=== PATIENT | female | born 1990 | race American Indian/Alaskan Native ===

== ENCOUNTER 2018-09-04 13:16 | Emergency (ER) | payer SELFPAY ==
[2018-09-04 13:16] VITALS: BMI 19.5
[2018-09-04 13:27] VITALS: RESP 18; O2SAT 99
--- NOTE | 2018-09-04 13:31 | ED PDOC ---
HPI: Abdomen Time Seen by Provider: 09/04/18 13:30 Chief Complaint (Nursing): Abdominal Pain Chief Complaint (Provider): abdominal pain History Per: Patient Additional Complaint(s): 27 y/o female presents with generalized abdominal pain for 1 week associated with diarrhea and nausea. LMP was 08/19/18 but patient states she is not sure if she is . No fever or chills. She rates current pain as 5/10. Patient did not take any home test. PMD: [place] Past Medical History Reviewed: Historical Data, Nursing Documentation, Vital Signs Vital Signs: Last Vital Signs Temp 97.7 F 09/04/18 13:25 Pulse 103 H 09/04/18 13:25 Resp 18 09/04/18 13:25 BP 102/63 09/04/18 13:25 Pulse Ox 99 09/04/18 13:25 - Medical History PMH: No Chronic Diseases - Family History Family History: States: No Known Family Hx - Living Arrangements Living Arrangements: With Family - Social History Current smoker - smoking cessation education provided: No - Home Medications Home Medications: Ambulatory Orders Medication Instructions Recorded Naproxen [Naprosyn] 375 mg PO BID PRN #14 tab 10/18/14 Ibuprofen [Motrin] 600 mg PO Q8 #20 tab 03/28/15 - Allergies Allergies/Adverse Reactions: Allergies Allergy/AdvReac Type Severity Reaction Status Date / Time No Known Allergies Allergy Verified 10/18/14 04:13 Review of Systems ROS Statement: Except As Marked, All Systems Reviewed And Found Negative Gastrointestinal: Positive for: Abdominal Pain Physical Exam - Reviewed Nursing Documentation Reviewed: Yes Vital Signs Reviewed: Yes - Physical Exam Appears: Positive for: Well, Non-toxic, No Acute Distress Skin: Positive for: Normal Color. Negative for: Rash Eye Exam: Positive for: Normal appearance Cardiovascular/Chest: Positive for: Regular Rate, Rhythm Respiratory: Positive for: Normal Breath Sounds. Negative for: Wheezing, Respiratory Distress Gastrointestinal/Abdominal: Positive for: Soft. Negative for: Tenderness, Distended, Guarding, Rebound Extremity: Positive for: Normal ROM Neurologic/Psych: Positive for: Alert, Oriented - Laboratory Results Result Diagrams: 09/04/18 15:43 09/04/18 15:43 Urine POC: Negative Urine dip results: Negative for: Leukocyte Esterase, Blood, Nitrate, Ketones, Glucose, Bilirubin, Protein - ECG O2 Sat by Pulse Oximetry: 99 Pulse Ox Interpretation: Normal Medical Decision Making Medical Decision Makin27 y/o with generalized abdominal pain Plan: Urine test Urine dip CBC CMP Lipase PO mylanta PO simethicone Patient is aware of all diagnostic testing results. All questions answered. Advised PMD follow up. Disposition - Clinical Impression Clinical Impression: Abdominal pain - Patient ED Disposition Is Patient to be Admitted: No Counseled Patient/Family Regarding: Studies Performed, Diagnosis, Need For Followup - Disposition Referrals: [facility] [Provider Group] Disposition: Routine/Home Disposition Time: 16:50 Condition: STABLE Additional Instructions: Take over the counter mylanta or gas-x for stomach upset. Take pepcid 20 mg dose daily for heartburn symptoms. This med is available over the counter. Follow up with primary care doctor in 2-3 days. Instructions: Stomach Ache and Stomach Upset Forms: [employer] [facility] ([place])
[2018-09-04] MEDS ORDERED: Simethicone 80 mg Chewtab PO STA (14:55)
[2018-09-04] MEDS ORDERED: Alum-Mag Hydrox-Simethicone Susp (30 mL) PO STA (14:56)
[2018-09-04] MEDS ORDERED: Alum-Mag Hydrox-Simethicone Susp (30 mL) ONE (15:20)
[2018-09-04 15:51] LABS: BASO # 0.1 K/uL (0.0-0.2); BASO % 1.2 % (0.0-2.0); EOS # 0.2 K/uL (0.0-0.7); EOS % 3.1 % (0.0-4.0); HEMOGLOBIN 12.1 g/dL (12.0-16.0); LYMPH % 33.2 % (20.0-40.0); MEAN CELL VOLUME 91.8 fl (81.0-99.0); MEAN CORPUSCULAR HEMOGLOBIN 31.4 pg (27.0-31.0); MEAN CORPUSCULAR HGB CONC 34.2 g/dL (33.0-37.0); MEAN PLATELET VOLUME 7.5 fl (7.2-11.7); MONO # 0.4 K/uL (0.0-0.8); MONO % 7.6 % (0.0-10.0); NEUT # 3.2 K/uL (1.8-7.0); NEUT % 54.9 % (50.0-75.0); NRBC % 0.1 % (0.0-0.0); RBC 3.86 Mil/uL (3.80-5.20); RED CELL DISTRIBUTION WIDTH 13.5 % (11.5-14.5); WHITE BLOOD COUNT 5.9 K/uL (4.8-10.8)
[2018-09-04 16:00] LABS: ALB/GLOB RATIO 1.2 (1.0-2.1); ALBUMIN 4.3 g/dL (3.5-5.0); ALT/SGPT 26 U/L (9-52); AST/SGOT 27 U/L (14-36); BLOOD UREA NITROGEN 13 mg/dl (7-17); CALCIUM 9.8 mg/dL (8.4-10.2); GFR NON-AFRICAN AMERICAN > 60; LIPASE 32 U/L (23-300)
[2018-09-04 18:12] VITALS: BP 104/63; PULSE 81; TEMP 97.9
== END 2018-09-04 17:50 | disposition home or self-care (01) ==
LOC: H.ER 13:16
DX: R10.9 Unspecified abdominal pain (principal); R19.7 Diarrhea, unspecified; R11.0 Nausea